=== PATIENT | male | born 1985 | race Caucasian/White ===

== ENCOUNTER 2020-03-30 09:45 | Outpatient (CLI) | payer OTHER, SELFPAY ==
--- NOTE | 2020-03-30 09:26 | DI.RAD_ITS ---
EXAM: XR LUMBAR SPINE COMPLETE CLINICAL HISTORY: LOWER BACK PAIN M54.5. TECHNIQUE: 2D digital imaging was performed. COMPARISON: No exams were available for comparison FINDINGS: BONES: No fracture or destructive lesion. Vertebral bodies are unremarkable. No facet hypertrophy jose alejandro ntified. The SI joints and hip joints are are unremarkable as visualized. DISKS: Intervertebral disc spaces are maintained. ALIGNMENT: Lumbar spinal alignment is within normal limits. SOFT TISSUE: Normal. IMPRESSION: Unremarkable radiographs of the lumbar spine. DATA REPOSITORY: RADIATION DOSE DELIVERED:
== END 2020-03-30 10:05 ==
PROVIDERS: PCP Nurse Practitioner; Visit Provider Nurse Practitioner Family
DX: M54.5 Low back pain (principal)
CPT/HCPCS: 72110

== ENCOUNTER 2021-05-10 04:20 | Outpatient (CLI) | payer OTHER, SELFPAY ==
--- NOTE | 2021-05-10 09:45 | DI.MRI_ITS ---
Exam(s) MR LUMBAR SPINE WO EXAM: MR LUMBAR SPINE WO CLINICAL HISTORY: CHRONIC LOW BACK PAIN, M54.5,H/O FALL OFF ROOF. TECHNIQUE: Multiplanar multisequence MRI of the Lumbar spine was performed. COMPARISON: CR XR LUMBAR SPINE COMPLETE from 03/30/2020 CR XR LUMBAR SPINE COMPLETE from 03/30/2020 FINDINGS: Bones: The last intervertebral disc space is designated the L5/S1 level for the numbering purpose of this examination. The vertebral body heights are well maintained. Alignment is satisfactory. The si gnal characteristics are unremarkable. Cord: The conus tip ends at the T12 level. It is of normal size and signal intensity. T12-L1: No disc herniations or bulges are present. No central spinal canal or neural foraminal stenos is. L1-2: No disc herniations or bulges are present. No central spinal canal or neural foraminal stenosis . L2-3: No disc herniations or bulges are present. No central spinal canal or neural foraminal stenosis . L3-4: There is a mild diffuse disc bulge. No central spinal canal or neural foraminal stenosis. L4-5: There is a mild diffuse disc bulge. No central spinal canal or neural foraminal stenosis. L5-S1: There is a small central disc herniation. No central spinal canal or neural foraminal stenosi s. Soft tissues: The visualized SI joints and sacrum are well maintained. The paraspinal soft tissues ar e unremarkable. IMPRESSION: 1. No evidence of significant spinal stenosis or neuroforaminal narrowing. 2. Small central disc herniation at L5-S1. No significant central spinal canal or neural foraminal s tenosis. DATA REPOSITORY:
== END 2021-05-10 04:40 ==
PROVIDERS: PCP Nurse Practitioner Family; Visit Provider Nurse Practitioner Family
DX: M51.27 Other intervertebral disc displacement, lumbosacral region; G89.29 Other chronic pain; Z91.81 History of falling
CPT/HCPCS: 72148

== ENCOUNTER 2021-12-11 10:51 | Emergency (ER) | payer OTHER, SELFPAY ==
[2021-12-11 11:00] VITALS: BP 151/93; PULSE 55; RESP 16; TEMP 36.5; O2SAT 99
[2021-12-11] MEDS: Ketorolac 15 MG/ML VIAL IVP (11:34)
[2021-12-11] MEDS: diazePAM 10 MG/2 ML SYR 5 MG IVP (11:35)
[2021-12-11] MEDS: Lidocaine 5% Patch 1 PATCH TP (11:35)
--- NOTE | 2021-12-11 12:09 | ED.GENADUL_ITS ---
Discharge Plan Disposition Patient Disposition: HOME Condition: Stable Discharge Details Clinical Impression: Low back pain Primary Care Provider: Emerald Ro ED Provider: Yasmine Bishop Home Meds and New Rx's Prescriptions: New hydrocodone-acetaminophen 5-325 mg tablet 1 tab PO Q6H PRNQty: 7 0RF orphenadrine citrate 100 mg tablet extended release 100 mg PO BID Qty: 10 0RF lidocaine [Lidoderm] 5 % adhesive patch,medicated 1 patch topical DAILY Qty: 15 0RF Rx Instructions: leave on most painful area for up to 12 hrs No Action cyclobenzaprine 10 mg tablet 10 mg PO TID PRN (Reason: muscle spasm) 0RF Discharge Instructions Instructions: Low Back Strain (ED) Additional Instructions: Take orphenadrine twice daily as long as you are not operating a vehicle before make you drowsy Take Motrin 600 mg every 8 hours with food for the next 3 days Apply the Lidoderm patch, to [place], 12 hours off Take the [place] sparingly, this medication is addictive Stay away from heavy lifting for the next week or until your symptoms improve She developed changes in bowel or bladder, radiation of symptoms, weakness to her lower extremities, or with any new or worsening complaints, please return immediately for reassessment I am giving you a referral to physical therapy Stand Alone Forms: Physical Therapy Referral Referrals: Emerald Ro DO [Primary Care Provider] - Discharge Data Discharge Date/Time-TO BE ENTERED AT DEPARTURE: 12/11/21 14:07 Medical Decision Making Patient likely has musculoskeletal pain secondary to lifting a mechanism Feeling symptomatically improved after Toradol, morphine, Dilaudid, Tylenol, and Lidoderm patch Stable for discharge home, no neurological findings consistent with cauda equina syndrome, did review previous MRI no indication for urgent MRI I did consider steroids however patient does not have clear radicular symptoms associated with his pain and I do not feel this to be helpful at this time Return precautions discussed and patient expressed understanding Patient is able to ambulate at time of reassessment Encouraged to follow-up with PCP Physical therapy referral supplied Medical Records Medical records reviewed: Yes I reviewed the patient's medical records. Lab Data Lab results reviewed: Yes I reviewed the patient's lab results. HPI General Date/Time Provider Initiated Documentation: 12/11/21 11:09 . HPI Narrative: This 36-year-old gentleman with history of back pain and L5-S1 herniated disc in 2020 MRI presents with lumbar back pain which started today after lifting a heavy beam. Denies any significant radiation. Denies any paresthesias. Denies any change in bowel or bladder. Denies history of fever or chills. Did not have pain until he moved to being reportedly. Pain is exacerbated with movement. Related Data Home Medications Medication Instructions Recorded Confirmed cyclobenzaprine 10 mg tablet 10 mg PO TID PRN 05/13/21 12/11/21 hydrocodone 5 mg-acetaminophen 325 1 tab PO Q6H PRN #7 tab 12/11/21 mg tablet lidocaine 5 % topical patch 1 patch TOPICAL DAILY #15 ea 12/11/21 (Lidoderm) orphenadrine citrate 100 mg 100 mg PO BID #10 tab 12/11/21 tablet,extended release Previous Rx's Medication Instructions Recorded hydrocodone 5 mg-acetaminophen 325 1 tab PO Q6H PRN #7 tab 12/11/21 mg tablet lidocaine 5 % topical patch 1 patch TOPICAL DAILY #15 ea 12/11/21 (Lidoderm) orphenadrine citrate 100 mg 100 mg PO BID #10 tab 12/11/21 tablet,extended release Allergies Allergy/AdvReac Type Severity Reaction Status Date / Time No Known Drug Allergies Allergy Unverified 12/11/21 11:04 General Stated Complaint: Nk/Back Pain ROSAURA: 3 Review of Systems All systems reviewed & are unremarkable except as noted in HPI and below PFSH All Active Problems (Updated 12/11/21 @ 13:59 by ELISE Ruelas) History of sleep disturbance (Acute) History of anxiety (Acute) History of recent fall (Acute) Off roof .. no Fx Low back pain (Acute) Acute on chronic, with recent fall (2019). 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 MRI shows mild disc bulg/sm ctl disc yunior. No ctl canal or foraminal stenosis (04/2021). Family history of hypertension in father (Acute 06/30/17) Elevated blood pressure reading (Acute 06/30/17) Surgical History Tonsillectomy (11/03/05) Dr. Guillermo Shearer Family History Father Essential hypertension Anxiety Asthma Grandfather Diabetes Alcohol use disorder Maternal Aunt Pancreatic cancer Social History Smoking/Tobacco Use Status: Former Tobacco Use tobacco type: smokeless tobacco Tobacco: How many years used: 5 Smokeless tobacco user: chewing tobacco Quit status: has quit before Smoking risk assessment performed?: Yes Alcohol Intake: current Alcohol Intake frequency: a few times a week Substance use type: does not use Adopted: No Caregiver/Support person: No Foster care: No Household members: spouse and children Housing: house Number of Children: 1 Communication Needs: Hard of Hearing Education Level: high school Do you need help understanding health information?: Often current occupation: Contractor Pets and animals: Yes Sexually active: Yes Do you think of yourself as: straight/heterosexual Current gender identity: male What is your relationship status?: How often do you talk on the phone with friends or family?: three or more times per week How often do you get together with friends or relatives?: once per week Do you belong to any clubs or organized social groups?: no Panel score (0-1 are the most socially isolated patients): 2 What type of physical activity do you participate in: bicycling, regular exercise and other Details: snowboarding, snow shoeing Duration: > 90 minutes/day Frequency: 5-6 times per week Eunice/Gnosticism: Latter-Day Special eunice needs: No Seatbelt use: never Helmet use: Yes Helmet use: always Drive intox or ride w/intox water tanker driver: No Exam Const General: cooperative, comfortable and no acute distress Orientation: alert and oriented x3 Eyes Sclera: sclerae normal Resp Effort & Inspection: normal respiratory effort Cardio Rate: regular rate Other: Distal pulses intact GI Other: No abdominal bruit,, no CVA tenderness Back/Spine/Pelvis Back: no CVA tenderness and CVA tenderness Other: No lumbar spine tenderness tenderness SI joint on the left Skin General skin exam: no rashes or lesions noted Other: No rashes or lesions Neuro General: patient alert and patient oriented x3 Other: Distal strength and sensation intact Negative straight leg raise bilaterally DTRs intact bilateral upper and lower extremities Extrem Other: Distal pulses intact Course Vital Signs Vital signs: Vital Signs Temperature 36.5 C 12/11/21 11:00 Pulse 55 L 12/11/21 11:00 Respiratory Rate 16 12/11/21 11:00 Blood Pressure 151/93 H 12/11/21 11:00 Pulse Oximetry 99 12/11/21 11:00 Temperature 36.5 C 12/11/21 11:00 Temperature Source Skin 12/11/21 11:00 Pulse 55 L 12/11/21 11:00 Respiratory Rate 16 12/11/21 11:00 Respiratory Effort 12/11/21 11:00 Blood Pressure 151/93 H 12/11/21 11:00 Blood Pressure Position Standing 12/11/21 11:00 Pulse Oximetry 99 12/11/21 11:00 Oxygen Delivery Method Room Air 12/11/21 11:00 Oxygen Flow Rate 0 12/11/21 11:00 Pain Level 3 12/11/21 11:34 PAWSS Have you Been Recently Intoxicated or Drunk Within the Last 30 days?: Yes Have you Ever Experienced Previous Episodes of Alcohol Withdrawal?: No Have you ever Experienced Withdrawal Seizures?: No Have you ever Experienced Delirium Tremens(DT)s?: No Have you ever undergone Alcohol Rehabilitation Treatment (i.e, inpt ot outpatient treatment programs)?: No Have you ever Experienced Blackouts?: No Have you ever Combined Alcohol with other Downers within the last 90 days?: No Have you ever Combined Alcohol with any other Substance of Abuse during the last 90 days?: No Positive Blood Alcohol level on Presentation? [PCS.BAL]: No Evidence of Increased Autonomic Activity (i.e. HR>120, tremor, sweating, agitation, nausea)?: No Result: 1
[2021-12-11] MEDS: MORPHine 4 MG/ML SYR IVP (12:11)
[2021-12-11] MEDS: HYDROmorphone 2 MG/ML VIAL 1 MG IVP (12:55)
[2021-12-11] MEDS: oxyCODONE 5 mg/Acetaminophen 325 mg TAB 1 TAB PO (12:56)
[2021-12-11] MEDS: Lactated Ringers 1,000 ML 1000 ML IV (12:56)
== END 2021-12-11 14:07 | disposition home or self-care (01) ==
PROVIDERS: Emergency Provider Physician Assistant; PCP Student in an Organized Health Care Education/Training Program
DX: M54.50 Low back pain, unspecified (principal); X50.0XXA Overexertion from strenuous movement or load, initial encounter; Y99.0 Civilian activity done for income or pay
CPT/HCPCS: 96361; 96374; 96375; 99284; 99283; J0131; J1885; J2270; J3360

== ENCOUNTER 2021-12-26 02:15 | Outpatient (CLI) | payer OTHER, SELFPAY ==
[2021-12-26 14:22] LABS: BUN 17 mg/dL (7-18); CREATININE 0.9 mg/dL (0.70-1.30); Chloride 103 mmol/L (98-107); Glucose 111 mg/dL (74-106); Sodium 139 mmol/L (136-145)
== END 2021-12-26 02:16 | disposition home or self-care (01) ==
LOC: LBO 02:15
PROVIDERS: PCP Student in an Organized Health Care Education/Training Program; Visit Provider Student in an Organized Health Care Education/Training Program
DX: M54.59 Other low back pain (principal); R93.89 Abnormal findings on diagnostic imaging of other specified body structures; Z79.1 Long term (current) use of non-steroidal anti-inflammatories (NSAID)
CPT/HCPCS: 36415; 80048

== ENCOUNTER 2021-12-30 01:12 | Outpatient (CLI) | payer OTHER, SELFPAY ==
--- NOTE | 2021-12-30 08:00 | DI.MRI_ITS ---
Exam(s) MR LUMBAR SPINE WO EXAM: MR LUMBAR SPINE WO CLINICAL HISTORY: r/o new or changed disc herniation,LOW BACK STRAIN,PAIN,S39.012A. TECHNIQUE: Multiplanar multisequence MRI of the Lumbar spine was performed. COMPARISON: CR XR LUMBAR SPINE COMPLETE from 03/30/2020 MR MR LUMBAR SPINE WO from 05/10/2021 FINDINGS: Bones: The last intervertebral disc space is designated the L5/S1 level for the numbering purpose of this examination. The vertebral body heights are well maintained. Alignment is satisfactory. The ma rrow signal characteristics are unremarkable. Cord: The conus tip ends at the T12 level. It is of normal size and signal intensity. T12-L1: No disc herniations or bulges are present. No central spinal canal or neural foraminal stenos is. L1-2: No disc herniations or bulges are present. No central spinal canal or neural foraminal stenosis . L2-3: No disc herniations or bulges are present. No central spinal canal or neural foraminal stenosis . L3-4: Mild concentric disc bulging, unchanged.. No central spinal canal or neural foraminal stenosis . L4-5: No disc herniations or bulges are present. No central spinal canal or neural foraminal stenosis . L5-S1: Increase in size of previously noted central disc protrusion which now shows some superior ext rusion of disc material and causes narrowing of the AP dimension of the central canal. There may be mild nerve root impingement. No neural foraminal narrowing. Soft tissues: The visualized SI joints and sacrum are well maintained. The paraspinal soft tissues ar e unremarkable. IMPRESSION: Enlarged mint of previously noted L5-S1 central disc herniation, now with some superior extrusion of disc material and question nerve root impingement. DATA REPOSITORY:
== END 2021-12-30 01:32 ==
PROVIDERS: PCP Student in an Organized Health Care Education/Training Program; Visit Provider Student in an Organized Health Care Education/Training Program
DX: S39.012A Strain of muscle, fascia and tendon of lower back, initial encounter (principal); M51.27 Other intervertebral disc displacement, lumbosacral region
CPT/HCPCS: 72148

== ENCOUNTER 2022-01-07 17:49 | Emergency (ER) | payer OTHER, SELFPAY ==
--- NOTE | 2022-01-07 17:53 | DI.CT_ITS ---
Exam(s) CT HEAD CERVICAL SPINE WO EXAM: CT HEAD CERVICAL SPINE WO COMPARISON: No exams were available for comparison FINDINGS: CT examination of the cervical spine was performed without contrast administration. There is no evidence of acute cervical spine fracture or dislocation. Intervertebral disc spaces are well maintained. Tracheolaryngeal structures appear intact. No cervical mass or adenopathy. Noncontrast cranial CT was performed. Ventricular system is normal in appearance. No evidence of acute intracranial hemorrhage, mass effect, or midline shift. No calvarial fracture. The orbital and temporal bone structures appear intact. Visualized mastoid air cells and paranasal sinuses appear clear. IMPRESSION: No evidence of acute cervical spine injury. No evidence of acute intracranial injury. RADIATION DOSE DELIVERED: 1,505.39mGy.cm Total DLP 1,505.39mGy.cm Total DLP !Error CTDIvol DATA REPOSITORY: All CT scans at this facility are submitted to the National Radiology Data Registry (NRDR) Dose Index Registry (DIR) with the [employer] (A[employer]). RADIATION OPTIMIZATION: All CT scans at this facility use at least one of these dose optimization te chniques: automated exposure control; mA and/or kV adjustment per patient size (includes targeted exa ms where dose is matched to clinical indication); or iterative reconstruction.
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
[2022-01-07 17:55] VITALS: BP 159/89; PULSE 56; RESP 16; TEMP 36.7; O2SAT 99
--- NOTE | 2022-01-07 18:19 | NUR.NOTE ---
RN went to CT with pt and held Cspine. pt had no complaints. NUSRAT
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
[2022-01-07 18:49] VITALS: BP 128/66; PULSE 64; RESP 16; TEMP 36.6; O2SAT 99
== END 2022-01-07 18:46 | disposition home or self-care (01) ==
PROVIDERS: Emergency Provider Physician Assistant; PCP Student in an Organized Health Care Education/Training Program
DX: S09.8XXA Other specified injuries of head, initial encounter (principal); M54.2 Cervicalgia; R51.9 Headache, unspecified; S05.02XA Injury of conjunctiva and corneal abrasion without foreign body, left eye, initial encounter; X58.XXXA Exposure to other specified factors, initial encounter
CPT/HCPCS: 99284; 70450; 72125; 99283

== ENCOUNTER 2024-04-13 16:02 | Outpatient (CLI) | payer OTHER, SELFPAY ==
--- NOTE | 2024-04-13 14:15 | DI.RAD_ITS ---
Exam(s) XR SHOULDER LT COMPLETE 2+V EXAM: XR SHOULDER LT COMPLETE 2+V CLINICAL HISTORY: LEFT SHOULDER PAIN. TECHNIQUE: 2D digital imaging was performed. COMPARISON: No exams were available for comparison FINDINGS: Two views No evidence of fracture or dislocation no abnormal soft tissue calcifications. The subacromial space is not diminished. AC joint appears unremarkable. There appear to be mild degenerative changes in the glenohumeral joint. IMPRESSION: No fractures. Degenerative changes in the glenohumeral joint. DATA REPOSITORY: RADIATION DOSE DELIVERED:
== END 2024-04-13 16:03 | disposition home or self-care (01) ==
LOC: DIORS 16:02
PROVIDERS: PCP Student in an Organized Health Care Education/Training Program; Visit Provider Student in an Organized Health Care Education/Training Program
DX: M25.512 Pain in left shoulder (principal); M19.011 Primary osteoarthritis, right shoulder
CPT/HCPCS: 73030

== ENCOUNTER → 2024-04-26 00:53 | Outpatient (CLI) | payer OTHER, SELFPAY ==
--- NOTE | 2024-04-26 07:15 | DI.MRI_ITS ---
Exam(s) MR UPPER JOINT LT WO EXAM: MR UPPER JOINT LT WO CLINICAL HISTORY: L SHOULder PAIN,SLAP TEAR, S43.432A TECHNIQUE: Multiplanar multisequence MRI of the shoulder was performed. COMPARISON: CR XR SHOULDER LT COMPLETE 2+V from 04/13/2024 FINDINGS: MARROW:There is no evidence of fracture, Hill-Sachs deformity, nor ominous osseous lesions. GLENOHUMERAL JOINT: No joint effusion nor obvious loose intra-articular bodies. No chondral defects. No osteophytes. No degenerative subarticular cysts. See below for abnormal labral findings. ROTATOR CUFF MECHANISM: AC JOINT/ACROMIUM: There are mild degenerative changes in the AC joint. No downgoing osteophytes.. There is no evidence of os acromiale. Supraspinatus: Intact. No evidence of tear nor muscle atrophy. Infraspinatus: Intact. No evidence of tear nor muscle atrophy. Teres Minor: See below Subscapularis/anterior cuff: Intact. No abnormal signal at the level of the multipennate insertional fibers. No significant tear nor atrophy. BICEPS TENDON: Exhibits normal position within the intertubercular groove. No evidence of tear. No tenosynovitis. LABRUM: There is a tear in the posterior labrum with an associated paralabral cyst which dissects int o the teres minor muscle, this cyst measuring 4.5 cm length by 1.0 cm height by 1.3 cm maximum width. There is no evidence of tear of the anterior labrum. There is no abnormal intramuscular signal abn ormality related to the mass effect of this paralabral cyst nor related to denervation of the muscle. IMPRESSION: 1. The main finding here is a tear of the posterior inferior labrum with associated 45 x 10 x 13 mm p aralabral cyst which is dissecting into the adjacent teres minor muscle. There is no evidence of tea r of the teres minor and no evidence of denervation signal related to compression of the axillary ner ve. 2. No evidence of biceps tendon tear nor tenosynovitis. 3. No evidence of rotator cuff tear nor rotator cuff tendinitis. DATA REPOSITORY:
== END ==
PROVIDERS: PCP Student in an Organized Health Care Education/Training Program; Visit Provider Student in an Organized Health Care Education/Training Program
DX: S43.432A Superior glenoid labrum lesion of left shoulder, initial encounter (principal)
CPT/HCPCS: 73221